=== PATIENT | male | born 1995 | race Caucasian/White ===

== ENCOUNTER 2016-12-06 15:30 | Emergency (ER) | payer SELFPAY ==
[~2016-12-06] VITALS: Ht 180.3 cm; Wt 71.8 kg
[~2016-12-06 15:30] MED LIST: GEOD80CA PO; ZIPR20 PO
[2016-12-06 15:43] VITALS: BP 141/80; PULSE 68; RESP 16; TEMP 99.4; O2SAT 100
[2016-12-06] MEDS ORDERED: BACT800T5 PO (17:57)
[2016-12-06] MEDS ORDERED: CEPH-460 PO (17:57)
--- NOTE | 2016-12-06 18:04 | PD ---
HPI . Right great toe pain Chief Complaint: Skin Problem Time Seen by Provider: 16:40 Travel History International Travel<30 days: No Contact w/Intl Traveler<30days: No Traveled to known affect area: No History of Present Illness HPI 21-year-old male presents emergency department for evaluation of right great toe pain. Patient states he had an ingrown toenail in [place] . He has noticed that it is becoming increasingly red and painful for the last several months. Patient states he started running a fever about 3 days ago. Patient is afebrile in triage. He is well-appearing and nontoxic-appearing. The right great toe has mild erythema that is localized around the toenail. He denies any major medical history. He has no known allergies. He does not take any daily medication. PFSH Past Medical History Cancer: No Cardiovascular Problems: Yes Diabetes: No Diminished Hearing: No Immunizations Current: Yes Migraines: No Seizures: No Thyroid Disease: No Ulcer: No Tetanus Vaccination: < 5 Years Influenza Vaccination: No Past Surgical History Appendectomy: No Cholecystectomy: No Other Surgery: Yes (At age 5, pt had foot surgery to remove glass.) Social History Alcohol Use: No (DENIES) Tobacco Use: No (dip one to 3/4 can a day) Substance Use: No (DENIES) Allergies-Medications (Allergen,Severity, Reaction): Coded Allergies: No Known Allergies (Verified , 12/06/16) Reported Meds & Prescriptions Reported Meds & Active Scripts Active Reported Geodon (Ziprasidone) 20 Mg Cap 20 Mg PO THREE PM Geodon (Ziprasidone) 80 Mg Cap 80 Mg PO HS Review of Systems Except as stated in HPI: all other systems reviewed are Neg Physical Exam Narrative GENERAL: Well-nourished, well-developed 21-year-old male patient in no acute distress. Nontoxic appearing. SKIN: Mild erythema surrounding right great toe nail. HEAD: Normocephalic. Atraumatic. EYES: No scleral icterus. No injection or drainage. NECK: Supple, trachea midline. No JVD or lymphadenopathy. CARDIOVASCULAR: Regular rate and rhythm without murmurs, gallops, or rubs. RESPIRATORY: Breath sounds equal bilaterally. No accessory muscle use. GASTROINTESTINAL: Abdomen soft, non-tender, nondistended. MUSCULOSKELETAL: No ecchymosis, cyanosis, or edema. BACK: Nontender without obvious deformity. No CVA tenderness. Data Data Last Documented VS Vital Signs Date Time Temp Pulse Resp B/P (MAP) Pulse Ox O2 Delivery O2 Flow Rate FiO2 12/06/16 15:43 99.4 68 16 141/80 (100) 100 MDM Medical Decision Making Medical Screen Exam Complete: Yes Emergency Medical Condition: Yes Differential Diagnosis Differential diagnoses include but not limited to infected ingrown toenail, cellulitis, toe pain, gout Narrative Course 21-year-old male presents to emergency department for evaluation of right great toe pain following an ingrown toenail that he first noticed when he was in [facility] in March. He has noticed the last several months it is becoming more painful. He started running a fever approximately 3 days ago. Patient is well-appearing and nontoxic-appearing. Patient is afebrile in triage. Patient denies any paresthesias, chest pain, shortness breath. Patient has full range of motion in all extremities including right great toe.Based on patient's symptoms, clinical presentation, vital sign review and physical exam it is not necessary to admit the patient to the hospital or keep the patient in the emergency department for further evaluation. Patient will be given a prescription for Keflex and Bactrim discharged home with instructions to follow- up with the vp [facility]. Diagnosis Primary Impression: Ingrowing toenail with infection Referrals: [facility] Patient Instructions: General Instructions, Ingrown Nail (ED) Additional Instructions: Please return to emergency department if your symptoms return or worsen. Follow up with your primary care provider. Motrin or Tylenol as needed for pain or fever. Take medications as prescribed. Med/Other Pt SpecificInfo: Prescription(s) given Scripts Cephalexin (Keflex) 500 Mg Capsule 500 MG PO Q6H for Infection for 5 Days, #20 CAP 0 Refills Prov: Allison Reaves 12/06/16 Sulfamethoxazole-Trimethoprim (Bactrim DS) 800-160 Mg Tab 1 TAB PO BID for Infection for 10 Days, #20 TAB 0 Refills Prov: Allison Reaves 12/06/16 Disposition: 01 DISCHARGE HOME Condition: Stable Allison Reaves Dec 06, 2016 18:04
== END 2016-12-06 18:14 | disposition home or self-care (01) ==
LOC: PHEFT 15:30
DX: L60.0 Ingrowing nail (principal); L03.031 Cellulitis of right toe
CPT/HCPCS: 99284

== ENCOUNTER 2017-02-09 22:37 | Emergency (ER) | payer SELFPAY ==
[~2017-02-09] VITALS: Ht 177.8 cm; Wt 70.0 kg
[~2017-02-09 22:37] MED LIST changes: +BACT800T5 PO; +CEPH-460 PO
[2017-02-09 22:38] VITALS: BP 120/68; PULSE 112; RESP 20; TEMP 103; O2SAT 99
[2017-02-09] MEDS ORDERED: SODIUM CHLOR 0.9% 1000 ML INJ 1,000 ML IV ONE ×2 (22:56)
[2017-02-09] MEDS ORDERED: SODIUM CHLOR 0.9% 1000 ML INJ 100 ML IV ONE (22:56)
[2017-02-09] MEDS ORDERED: ACETAMINOPHEN 325 MG TAB PO ONE (23:00)
--- NOTE | 2017-02-09 23:28 | RADRPT ---
EXAM DATE/TIME: 02/09/2017 23:16 [place] COMPARISON: No previous studies available for comparison. INDICATIONS : Cough, shortness of breath. MEDICAL HISTORY : None. SURGICAL HISTORY : None. ENCOUNTER: Initial ACUITY: 1 day PAIN SCORE: 0/10 LOCATION: Bilateral chest FINDINGS: A single view of the chest demonstrates the lungs to be symmetrically aerated without evidence of mas s, infiltrate or effusion. The cardiomediastinal contours are unremarkable. Osseous structures are intact. CONCLUSION: Normal examination. Meño Ross MD on February 09, 2017 at 23:24 Board Certified Radiologist. This report was verified electronically.
[2017-02-09 23:30] LABS: AUTOMATED NEUTROPHIL # 9.3 TH/MM3 (1.8-7.7); BASOPHIL % 0.4 % (0.0-2.0); HEMATOCRIT 43.5 % (39.0-51.0); HEMOGLOBIN 14.9 GM/DL (13.0-17.0); LYMPH % 9.2 % (9.0-44.0); LYMPHOCYTE # 1.1 TH/MM3 (1.0-4.8); MEAN CELL VOLUME 84.4 FL (80.0-100.0); MEAN CORPUSCULAR HGB CONC 34.4 % (32.0-36.0); MEAN PLATELET VOLUME 8.8 FL (7.0-11.0); MONO % 12.5 % (0.0-8.0); MONOCYTE # 1.5 TH/MM3 (0-0.9); NEUT % 77.9 % (16.0-70.0); PLATELET COUNT 187 TH/MM3 (150-450); RED BLOOD COUNT 5.15 MIL/MM3 (4.50-5.90); RED CELL DISTRIBUTION WIDTH 12.8 % (11.6-17.2)
[2017-02-09 23:36] LABS: ALBUMIN 3.8 GM/DL (3.4-5.0); AST (GOT) 19 U/L (15-39); BICARBONATE 23.8 MEQ/L (21.0-32.0); BLOOD UREA NITROGEN 9 MG/DL (7-18); CALCIUM 9.1 MG/DL (8.5-10.1); CHLORIDE 100 MEQ/L (98-107); CREATININE 1.08 MG/DL (0.60-1.30); GLOMERULAR FILTRATION RATE 87 ML/MIN (>89); GLUCOSE,RANDOM 114 MG/DL (74-106); SODIUM (NA) 133 MEQ/L (136-145)
[2017-02-09 23:37] LABS: ALT (GPT) 15 U/L (9-52)
[2017-02-09 23:40] LABS: ALKALINE PHOSPHATASE 82 U/L (45-117); TOTAL BILIRUBIN ADULT 0.8 MG/DL (0.2-1.0); TOTAL PROTEIN 8.1 GM/DL (6.4-8.2)
[2017-02-09 23:47] LABS: BILIRUBIN, URINE NEG (NEG); BLOOD, URINE NEG (NEG); GLUCOSE,URINE NEG (NEG); KETONE, URINE NEG (NEG); MUCUS URINE FEW /lpf (OCC); NITRITE,URINE NEG (NEG); URINE COLOR YELLOW (YELLW/STRAW); URINE LEUKOCYTE ESTERASE NEG (NEG)
[2017-02-09 23:57] VITALS: O2SAT 100
--- NOTE | 2017-02-09 23:57 | PD ---
HPI Chief Complaint: Fever Time Seen by Provider: 22:52 Travel History International Travel<30 days: No Contact w/Intl Traveler<30days: No Traveled to known affect area: No History of Present Illness HPI 21-year-old male arrives with a fever for the past 2 days. He also complains of pain in the right great toe. His family members no hyperventilation. The patient reports shortness of breath. He denies cough. He denies chest pain and sore throat. He reports several days of right toe pain. No vomiting. No abdominal pain or diarrhea. Onset gradual. Timing constant. Associated symptoms include a paresthesias in the fingers. PFSH Past Medical History Cancer: No Cardiovascular Problems: Yes Diabetes: No Diminished Hearing: No Immunizations Current: Yes Migraines: No Seizures: No Thyroid Disease: No Ulcer: No Past Surgical History Appendectomy: No Cholecystectomy: No Other Surgery: Yes (At age 5, pt had foot surgery to remove glass.) Social History Alcohol Use: No (DENIES) Tobacco Use: No (dip one to 3/4 can a day) Substance Use: No (DENIES) Allergies-Medications (Allergen,Severity, Reaction): Coded Allergies: No Known Allergies (Verified Allergy, Unknown, 02/09/17) Reported Meds & Prescriptions Reported Meds & Active Scripts Active Hydrocodone-Acetaminophen 7.5 Mg-325 Mg Tab 2 Tab PO Q6H PRN Keflex (Cephalexin) 500 Mg Capsule 500 Mg PO Q6H 5 Days Bactrim DS (Sulfamethoxazole-Trimethoprim) 800-160 Mg Tab 1 Tab PO BID 10 Days Reported Geodon (Ziprasidone) 20 Mg Cap 20 Mg PO THREE PM Geodon (Ziprasidone) 80 Mg Cap 80 Mg PO HS Review of Systems Except as stated in HPI: all other systems reviewed are Neg General / Constitutional: Positive: Fever Physical Exam Narrative GENERAL: 21-year-old male nourished well-developed SKIN: Focused skin assessment warm/dry. HEAD: Atraumatic. Normocephalic. EYES: Pupils equal and round. No scleral icterus. No injection or drainage. ENT: No nasal bleeding or discharge. Mucous membranes pink and moist. NECK: Trachea midline. No JVD. CARDIOVASCULAR: Regular rate and rhythm. No murmur appreciated. RESPIRATORY: No accessory muscle use. Clear to auscultation. Breath sounds equal bilaterally. GASTROINTESTINAL: Abdomen soft, non-tender, nondistended. Hepatic and splenic margins not palpable. MUSCULOSKELETAL: No obvious deformities. No clubbing. No cyanosis. There is an ingrown toenail along the medial aspect and lateral aspect of the right great toenail. NEUROLOGICAL: Awake and alert. No obvious cranial nerve deficits. Motor grossly within normal limits. Normal speech. PSYCHIATRIC: Appropriate mood and affect; insight and judgment normal. Data Data Last Documented VS Vital Signs Date Time Temp Pulse Resp B/P (MAP) Pulse Ox O2 Delivery O2 Flow Rate FiO2 02/10/17 01:15 99.8 86 18 115/85 (95) 100 02/09/17 23:57 Nasal Cannula 2.00 Orders Orders Sepsis Workup Initiated (02/09/17 ) Complete Blood Count With Diff (02/09/17 22:56) Comprehensive Metabolic Panel (02/09/17 22:56) Urinalysis - C+S If Indicated (02/09/17 22:56) Influenzae A/B Antigen (02/09/17 22:56) Blood Culture (02/09/17 22:56) Chest, Single Ap (02/09/17 22:56) Arterial Blood Gas (Abg) (02/09/17 22:56) Ecg Monitoring (02/09/17 22:56) Iv Access Insert/Monitor (02/09/17 22:56) Oximetry (02/09/17 22:56) Oxygen Administration (02/09/17 22:56) Acetaminophen (Tylenol) (02/09/17 23:00) Sodium Chlor 0.9% 1000 Ml Inj (Ns 1000 M (02/09/17 22:56) Sodium Chlor 0.9% 1000 Ml Inj (Ns 1000 M (02/09/17 22:56) Sodium Chlor 0.9% 1000 Ml Inj (Ns 1000 M (02/09/17 22:56) Cephalexin (Keflex) (02/10/17 00:15) Acetamin-Hydrocod 325-5 Mg ([place] 5-325 (02/10/17 00:15) Ed Discharge Order (02/10/17 00:28) Mandatory Outpatient Referral (02/10/17 00:28) Labs Laboratory Tests Test 02/09/17 23:06 02/09/17 23:08 02/09/17 23:36 White Blood Count 12.0 TH/MM3 Red Blood Count 5.15 MIL/MM3 Hemoglobin 14.9 GM/DL Hematocrit 43.5 % Mean Corpuscular Volume 84.4 FL Mean Corpuscular Hemoglobin 29.0 PG Mean Corpuscular Hemoglobin Concent 34.4 % Red Cell Distribution Width 12.8 % Platelet Count 187 TH/MM3 Mean Platelet Volume 8.8 FL Neutrophils (%) (Auto) 77.9 % Lymphocytes (%) (Auto) 9.2 % Monocytes (%) (Auto) 12.5 % Eosinophils (%) (Auto) 0.0 % Basophils (%) (Auto) 0.4 % Neutrophils # (Auto) 9.3 TH/MM3 Lymphocytes # (Auto) 1.1 TH/MM3 Monocytes # (Auto) 1.5 TH/MM3 Eosinophils # (Auto) 0.0 TH/MM3 Basophils # (Auto) 0.0 TH/MM3 CBC Comment DIFF FINAL Differential Comment Blood Urea Nitrogen 9 MG/DL Creatinine 1.08 MG/DL Random Glucose 114 MG/DL Total Protein 8.1 GM/DL Albumin 3.8 GM/DL Calcium Level 9.1 MG/DL Alkaline Phosphatase 82 U/L Aspartate Amino Transf (AST/SGOT) 19 U/L Alanine Aminotransferase (ALT/SGPT) 15 U/L Total Bilirubin 0.8 MG/DL Sodium Level 133 MEQ/L Potassium Level 3.1 MEQ/L Chloride Level 100 MEQ/L Carbon Dioxide Level 23.8 MEQ/L Anion Gap 9 MEQ/L Estimat Glomerular Filtration Rate 87 ML/MIN Blood Gas Puncture Site RT RADIAL Blood Gas Patient Temperature 98.6 Blood Gas HCO3 21 mmol/L Blood Gas Base Excess -0.3 mmol/L Blood Gas Oxygen Saturation 98 % Arterial Blood pH 7.66 Arterial Blood Partial Pressure CO2 18 mmHg Arterial Blood Partial Pressure O2 151 mmHG Arterial Blood Oxygen Content 20.6 Vol % Arterial Blood Carboxyhemoglobin 1.1 % Arterial Blood Methemoglobin 0.8 % Blood Gas Hemoglobin 14.8 G/DL Oxygen Delivery Device NASAL CANNULA Blood Gas Liter Flow 4 L/M Urine Color YELLOW Urine Turbidity CLEAR Urine pH 8.0 Urine Specific [place] 1.006 Urine Protein NEG mg/dL Urine Glucose (UA) NEG mg/dL Urine Ketones NEG mg/dL Urine Occult Blood NEG Urine Nitrite NEG Urine Bilirubin NEG Urine Urobilinogen 2.0 MG/DL Urine Leukocyte Esterase NEG Urine RBC 1 /hpf Urine WBC 1 /hpf Urine Mucus FEW /lpf Microscopic Urinalysis Comment CATH-CULT NOT IND MDM Medical Decision Making Medical Screen Exam Complete: Yes Emergency Medical Condition: Yes Medical Record Reviewed: Yes Differential Diagnosis Ingrown toenail, paronychia, influenza, pneumonia Narrative Course the patient will be referred to podiatry. There is minimal swelling about the great toenail on the right side concerning for possible infected ingrown toenail. The patient reports purulent discharge. We'll put him on Keflex with a mandatory outpatient referral for podiatry tomorrow. Evidently the toenail had been clipped in remodel by pot builder in October. Hyperventilation is most probably the cause of the patient's paresthesias. Given the recent history of repair referral to podiatry is considered necessary. Diagnosis Primary Impression: Ingrown toenail Additional Impression: Hyperventilation Med/Other Pt SpecificInfo: Prescription(s) given Scripts Hydrocodone-Acetaminophen (Hydrocodone-Acetaminophen) 7.5 Mg-325 Mg Tab 2 TAB PO Q6H Y for PAIN SCALE 6 TO 10, #12 TAB 0 Refills Prov: Fran Britt MD 02/10/17 Cephalexin (Keflex) 500 Mg Capsule 500 MG PO Q6H for Infection for 5 Days, #20 CAP 0 Refills Prov: Fran Britt MD 02/10/17 Disposition: 01 DISCHARGE HOME Condition: Stable Fran Britt MD Feb 09, 2017 23:57
[2017-02-10] MEDS ORDERED: CEPH-460 PO (00:14)
[2017-02-10] MEDS ORDERED: HYDR-3580 PO (00:14)
[2017-02-10] MEDS ORDERED: CEPHALEXIN MONOHYDRATE 500 MG CAP PO ONE (00:15)
[2017-02-10] MEDS ORDERED: ACETAMINOPHEN/HYDROcodone 325 MG/5 MG TAB PO ONE (00:15)
[2017-02-10 01:15] VITALS: BP 115/85; TEMP 99.8
[2017-02-11] MEDS ORDERED: ZOFR4TAB PO (13:36)
[2017-02-11] MEDS ORDERED: DICY10 PO (13:36)
== END 2017-02-10 01:16 | disposition home or self-care (01) ==
LOC: NEPC 22:37
DX: L60.0 Ingrowing nail (principal); R06.4 Hyperventilation; Z79.899 Other long term (current) drug therapy
CPT/HCPCS: 36600; 71010; 80053; 81001; 82805; 85025; 87040; 87804; 96360; 96361; 99284; J7030

== ENCOUNTER 2017-02-11 11:07 | Emergency (ER) | payer SELFPAY ==
[~2017-02-11] VITALS: Ht 177.8 cm; Wt 68.2 kg
[~2017-02-11 11:07] MED LIST changes: +HYDR-3580 PO
[2017-02-11 11:08] VITALS: BP 149/76; PULSE 69; RESP 16; TEMP 98.9; O2SAT 99
[2017-02-11] MEDS ORDERED: SODIUM CHLORIDE 0.9% FLUSH 10 ML FLUSH IV FLUSH PRN ×2 (11:30→11:45)
[2017-02-11] MEDS ORDERED: SODIUM CHLOR 0.9% 1000 ML INJ 1,000 ML IV SCH (11:38)
[2017-02-11] MEDS ORDERED: ONDANSETRON HCL 4 MG/2 ML VIAL IVP ONE (11:45)
--- NOTE | 2017-02-11 11:52 | PD ---
HPI Chief Complaint: GI Complaint Time Seen by Provider: 11:27 Travel History International Travel<30 days: No Contact w/Intl Traveler<30days: No Traveled to known affect area: No History of Present Illness HPI Patient is a 21-year-old male who presents to emergency room with complaints of nausea and vomiting for the past 2 days. Patient reports that he was seen in the hospital on February 09, and was diagnosed with the ingrown toenail. Patient was placed on Keflex and was told to follow-up with podiatry. Patient reports that he has been unable to follow-up with podiatry. Patient reports that being on the antibiotics is making him sick, reports that he has been feeling nauseous and has been vomiting for the past 2 days. Patient reports no sick contacts, denies any cough or congestion, denies any abdominal pain patient 's only complaint is pain with his ingrown toenail. PFSH Past Medical History ADHD: Yes (STATES HAS ADHD) Anxiety: Yes Cancer: No Cardiovascular Problems: Yes Diabetes: No Diminished Hearing: No Immunizations Current: Yes Migraines: No Seizures: No Thyroid Disease: No Ulcer: No Past Surgical History Appendectomy: No Cholecystectomy: No Other Surgery: Yes (At age 5, pt had foot surgery to remove glass.) Social History Alcohol Use: No (DENIES) Tobacco Use: No (dip one to 3/4 can a day) Substance Use: No (DENIES) Allergies-Medications (Allergen,Severity, Reaction): Coded Allergies: No Known Allergies (Verified Allergy, Unknown, 02/11/17) Reported Meds & Prescriptions Reported Meds & Active Scripts Active Hydrocodone-Acetaminophen 7.5 Mg-325 Mg Tab 2 Tab PO Q6H PRN Keflex (Cephalexin) 500 Mg Capsule 500 Mg PO Q6H 5 Days Bactrim DS (Sulfamethoxazole-Trimethoprim) 800-160 Mg Tab 1 Tab PO BID 10 Days Review of Systems General / Constitutional: No: Fever Eyes: No: Visual changes HENT: No: Headaches Cardiovascular: No: Chest Pain or Discomfort Respiratory: No: Shortness of Breath Gastrointestinal: Positive: Nausea, Vomiting, No: Abdominal Pain Genitourinary: No: Dysuria Musculoskeletal: No: Pain Skin: Positive Other (ingrown toe nail pain), No Rash Neurologic: No: Weakness Psychiatric: No: Depression Endocrine: No: Polydipsia Hematologic/Lymphatic: No: Easy Bruising Physical Exam Narrative GENERAL: Well-nourished, well-developed, no acute distress SKIN: Focused skin assessment warm/dry. HEAD: Atraumatic. Normocephalic. EYES: Pupils equal and round. No scleral icterus. No injection or drainage. ENT: No nasal bleeding or discharge. Mucous membranes pink and moist. NECK: Trachea midline. No JVD. CARDIOVASCULAR: Regular rate and rhythm. No murmur appreciated. RESPIRATORY: No accessory muscle use. Clear to auscultation. Breath sounds equal bilaterally. GASTROINTESTINAL: Abdomen soft, non-tender, nondistended. Hepatic and splenic margins not palpable. MUSCULOSKELETAL: No obvious deformities. No clubbing. No cyanosis. No edema. Patient with ingrown toenail along the medial aspects as well as lateral aspect of his right great toenail NEUROLOGICAL: Awake and alert. No obvious cranial nerve deficits. Motor grossly within normal limits. Normal speech. PSYCHIATRIC: Appropriate mood and affect; insight and judgment normal. Data Data Last Documented VS Vital Signs Date Time Temp Pulse Resp B/P (MAP) Pulse Ox O2 Delivery O2 Flow Rate FiO2 02/11/17 11:56 02/11/17 11:30 18 02/11/17 11:08 98.9 69 99 Room Air Orders Orders Sodium Chloride 0.9% Flush (Ns Flush) (02/11/17 11:30) Complete Blood Count With Diff (02/11/17 11:38) Comprehensive Metabolic Panel (02/11/17 11:38) Prothrombin Time / Inr (Pt) (02/11/17 11:38) Act Partial Throm Time (Ptt) (02/11/17 11:38) Iv Access Insert/Monitor (02/11/17 11:38) Ondansetron Inj (Zofran Inj) (02/11/17 11:45) Sodium Chlor 0.9% 1000 Ml Inj (Ns 1000 M (02/11/17 11:38) Sodium Chloride 0.9% Flush (Ns Flush) (02/11/17 11:45) Ketorolac Inj (Toradol Inj) (02/11/17 12:00) Dicyclomine (Bentyl) (02/11/17 12:00) Labs Laboratory Tests Test 02/11/17 11:50 White Blood Count 7.2 TH/MM3 Red Blood Count 4.78 MIL/MM3 Hemoglobin 14.2 GM/DL Hematocrit 40.9 % Mean Corpuscular Volume 85.6 FL Mean Corpuscular Hemoglobin 29.8 PG Mean Corpuscular Hemoglobin Concent 34.8 % Red Cell Distribution Width 12.7 % Platelet Count 175 TH/MM3 Mean Platelet Volume 9.4 FL Neutrophils (%) (Auto) 77.5 % Lymphocytes (%) (Auto) 11.7 % Monocytes (%) (Auto) 10.4 % Eosinophils (%) (Auto) 0.1 % Basophils (%) (Auto) 0.3 % Neutrophils # (Auto) 5.6 TH/MM3 Lymphocytes # (Auto) 0.8 TH/MM3 Monocytes # (Auto) 0.7 TH/MM3 Eosinophils # (Auto) 0.0 TH/MM3 Basophils # (Auto) 0.0 TH/MM3 CBC Comment DIFF FINAL Differential Comment Prothrombin Time 11.3 SEC Prothromb Time International Ratio 1.1 RATIO Activated Partial Thromboplast Time 31.3 SEC Blood Urea Nitrogen 6 MG/DL Creatinine 0.83 MG/DL Random Glucose 105 MG/DL Total Protein 7.8 GM/DL Albumin 3.5 GM/DL Calcium Level 9.1 MG/DL Alkaline Phosphatase 71 U/L Aspartate Amino Transf (AST/SGOT) 22 U/L Alanine Aminotransferase (ALT/SGPT) 11 U/L Total Bilirubin 0.8 MG/DL Sodium Level 135 MEQ/L Potassium Level 3.7 MEQ/L Chloride Level 103 MEQ/L Carbon Dioxide Level 26.2 MEQ/L Anion Gap 6 MEQ/L Estimat Glomerular Filtration Rate 118 ML/MIN MDM Medical Decision Making Medical Screen Exam Complete: Yes Emergency Medical Condition: Yes Medical Record Reviewed: Yes Interpretation(s) Vital Signs Date Time Temp Pulse Resp B/P (MAP) Pulse Ox O2 Delivery O2 Flow Rate FiO2 02/11/17 11:30 18 02/11/17 11:08 98.9 69 16 149/76 (100) 99 Room Air Differential Diagnosis Gastroenteritis, electrolyte abnormality, ingrown toenail with infection Narrative Course During the course of the patients emergency department visit, the patients history, examination, and differential diagnosis were reviewed with the patient. The patient was placed on a plasterer spot with oximetry and frequent blood pressure monitoring. The patient had an IV access obtained and blood work sent for analysis. 1) The patient was initially provided IV fluids as well as IV Zofran for his nausea and vomiting. Abdomen is soft, nontender, nondistended, no peritoneal signs, I do not think that this patient's warrants any imaging at this time as risk of radiation outweighs benefits. 2) Patient understands need to follow-up with self pay representative for his ingrown toe nail. The patients laboratory studies were reviewed and remarkable for: Laboratory Tests Test 02/11/17 11:50 White Blood Count 7.2 TH/MM3 (4.0-11.0) Red Blood Count 4.78 MIL/MM3 (4.50-5.90) Hemoglobin 14.2 GM/DL (13.0-17.0) Hematocrit 40.9 % (39.0-51.0) Mean Corpuscular Volume 85.6 FL (80.0-100.0) Mean Corpuscular Hemoglobin 29.8 PG (27.0-34.0) Mean Corpuscular Hemoglobin Concent 34.8 % (32.0-36.0) Red Cell Distribution Width 12.7 % (11.6-17.2) Platelet Count 175 TH/MM3 (150-450) Mean Platelet Volume 9.4 FL (7.0-11.0) Neutrophils (%) (Auto) 77.5 % (16.0-70.0) Lymphocytes (%) (Auto) 11.7 % (9.0-44.0) Monocytes (%) (Auto) 10.4 % (0.0-8.0) Eosinophils (%) (Auto) 0.1 % (0.0-4.0) Basophils (%) (Auto) 0.3 % (0.0-2.0) Neutrophils # (Auto) 5.6 TH/MM3 (1.8-7.7) Lymphocytes # (Auto) 0.8 TH/MM3 (1.0-4.8) Monocytes # (Auto) 0.7 TH/MM3 (0-0.9) Eosinophils # (Auto) 0.0 TH/MM3 (0-0.4) Basophils # (Auto) 0.0 TH/MM3 (0-0.2) CBC Comment DIFF FINAL Differential Comment Prothrombin Time 11.3 SEC (9.8-11.6) Prothromb Time International Ratio 1.1 RATIO Activated Partial Thromboplast Time 31.3 SEC (24.3-30.1) Blood Urea Nitrogen 6 MG/DL (7-18) Creatinine 0.83 MG/DL (0.60-1.30) Random Glucose 105 MG/DL (74-106) Total Protein 7.8 GM/DL (6.4-8.2) Albumin 3.5 GM/DL (3.4-5.0) Calcium Level 9.1 MG/DL (8.5-10.1) Alkaline Phosphatase 71 U/L (45-117) Aspartate Amino Transf (AST/SGOT) 22 U/L (15-39) Alanine Aminotransferase (ALT/SGPT) 11 U/L (9-52) Total Bilirubin 0.8 MG/DL (0.2-1.0) Sodium Level 135 MEQ/L (136-145) Potassium Level 3.7 MEQ/L (3.5-5.1) Chloride Level 103 MEQ/L (98-107) Carbon Dioxide Level 26.2 MEQ/L (21.0-32.0) Anion Gap 6 MEQ/L (5-15) Estimat Glomerular Filtration Rate 118 ML/MIN (>89) Patient was reevaluated, patient is feeling much better at this time. I reviewed all labs and all studies with patient in detail, he will follow up with self pay representative and pcp. He will return to ER as needed. patient was given follow up with [facility] Diagnosis Primary Impression: Ingrowing nail with infection Additional Impression: Nausea & vomiting Qualified Codes: R11.2 - Nausea with vomiting, unspecified Referrals: [facility] Patient Instructions: General Instructions Additional Instructions: Please drink plenty of fluids Please follow up with self pay representative Please follow up with your primary care doctor in 2-3 days Return to the ER if symptoms worsen or progress Return to the ER as needed Med/Other Pt SpecificInfo: Prescription(s) given Scripts Dicyclomine (Bentyl) 10 Mg Cap 10 MG PO QID for Bowel Management, #20 CAP 0 Refills Prov: Mari Head DO 02/11/17 Ondansetron (Zofran) 4 Mg Tab 4 MG PO Q6HR Y for NAUSEA OR VOMITING, #20 TAB 0 Refills Prov: Mari Head DO 02/11/17 Disposition: 01 DISCHARGE HOME Condition: Stable Mari Head DO Feb 11, 2017 11:52
[2017-02-11] MEDS ORDERED: KETOROLAC TROMETHAMINE 30 MG/ML (IVP) VIAL IV PUSH ONE (12:00)
[2017-02-11] MEDS ORDERED: DICYCLOMINE HCL 20 MG TAB PO ONE (12:00)
[2017-02-11 12:16] LABS: AUTOMATED NEUTROPHIL # 5.6 TH/MM3 (1.8-7.7); BASOPHIL % 0.3 % (0.0-2.0); EOSINOPHIL % 0.1 % (0.0-4.0); HEMATOCRIT 40.9 % (39.0-51.0); HEMOGLOBIN 14.2 GM/DL (13.0-17.0); LYMPH % 11.7 % (9.0-44.0); LYMPHOCYTE # 0.8 TH/MM3 (1.0-4.8); MEAN CELL VOLUME 85.6 FL (80.0-100.0); MEAN CORPUSCULAR HEMOGLOBIN 29.8 PG (27.0-34.0); MEAN CORPUSCULAR HGB CONC 34.8 % (32.0-36.0); MEAN PLATELET VOLUME 9.4 FL (7.0-11.0); MONO % 10.4 % (0.0-8.0); MONOCYTE # 0.7 TH/MM3 (0-0.9); NEUT % 77.5 % (16.0-70.0); PLATELET COUNT 175 TH/MM3 (150-450); RED BLOOD COUNT 4.78 MIL/MM3 (4.50-5.90); RED CELL DISTRIBUTION WIDTH 12.7 % (11.6-17.2); WHITE BLOOD COUNT 7.2 TH/MM3 (4.0-11.0)
[2017-02-11 12:22] LABS: INTERNATIONAL NORMALIZED RATIO 1.1 RATIO; PROTHROMBIN TIME - PATIENT 11.3 SEC (9.8-11.6)
[2017-02-11 12:35] LABS: ALKALINE PHOSPHATASE 71 U/L (45-117); ALT (GPT) 11 U/L (9-52); TOTAL BILIRUBIN ADULT 0.8 MG/DL (0.2-1.0); TOTAL PROTEIN 7.8 GM/DL (6.4-8.2)
[2017-02-11 12:38] LABS: ALBUMIN 3.5 GM/DL (3.4-5.0); AST (GOT) 22 U/L (15-39); BICARBONATE 26.2 MEQ/L (21.0-32.0); BLOOD UREA NITROGEN 6 MG/DL (7-18); CALCIUM 9.1 MG/DL (8.5-10.1); CHLORIDE 103 MEQ/L (98-107); CREATININE 0.83 MG/DL (0.60-1.30); GLOMERULAR FILTRATION RATE 118 ML/MIN (>89); GLUCOSE,RANDOM 105 MG/DL (74-106); SODIUM (NA) 135 MEQ/L (136-145)
[2017-02-11] MEDS ORDERED: ZOFR4TAB PO (13:36)
[2017-02-11] MEDS ORDERED: DICY10 PO (13:36)
[2017-02-11 13:46] VITALS: BP 114/65
== END 2017-02-11 13:47 | disposition home or self-care (01) ==
LOC: NEPD 11:07
DX: L60.0 Ingrowing nail (principal); R11.2 Nausea with vomiting, unspecified
CPT/HCPCS: 80053; 85025; 85610; 85730; 96361; 96374; 96375; 99284; J1885; J2405; J7030